=== PATIENT | female | born 1995 | race Caucasian/White ===

== ENCOUNTER 2020-09-09 22:08 | Emergency (ER) | payer BC ==
--- NOTE | 2020-09-09 22:26 | EDM.PDOC ---
ED HPI GENERAL MEDICAL PROBLEM - General Time Seen by Provider: 09/09/20 22:21 Source of Information: Reports: Patient, Family History Limitations: Reports: No Limitations - History of Present Illness INITIAL COMMENTS - FREE TEXT/NARRATIVE: Pt. states that her foot slipped and she landed on her backside and rolled down approx. 4-5 stairs at home. Pt. is currently 32 weeks gestation. She states that she did land on her abdomen at the bottom of the stairs. Primary complaint at this point is of pelvic/tailbone pain and L ankle pain. Denies striking her head. No cervical, thoracic, or lumbar discomfort. Pt. denies any vaginal bleeding. she is currently feeling to baby move. Denies any abdominal pain, chest pain, shortness of breath, or lightheadedness. No nausea, vomiting, or recent illness. No cough or chest congestion. Onset: Today Onset Date: 09/09/20 Location: Reports: Abdomen, Back - Related Data Allergies Allergy/AdvReac Type Severity Reaction Status Date / Time No Known Drug Allergies Allergy Other Verified 09/09/20 22:38 Home Meds: Home Meds Sertraline HCl 25 mg PO DAILY 09/09/20 [History] Past Medical History - Past Health History Medical/Surgical History: Denies Medical/Surgical History ED ROS GENERAL - Review of Systems Review Of Systems: See Below Constitutional: Reports: No Symptoms HEENT: Reports: No Symptoms Respiratory: Reports: No Symptoms Cardiovascular: Reports: No Symptoms Endocrine: Reports: No Symptoms GI/Abdominal: Reports: No Symptoms : Reports: No Symptoms Musculoskeletal: Reports: Leg Pain (L ankle pain), Other (pelvic pain) Skin: Reports: No Symptoms Neurological: Reports: No Symptoms Psychiatric: Reports: No Symptoms Hematologic/Lymphatic: Reports: No Symptoms Immunologic: Reports: No Symptoms ED EXAM, GENERAL - Physical Exam Exam: See Below Exam Limited By: No Limitations General Appearance: Alert, WD/WN, No Apparent Distress Eye Exam: Bilateral Eye: EOMI, Normal Fundi, Normal Inspection, PERRL Head: Atraumatic, Normocephalic Neck: Normal Inspection, Supple, Non-Tender, Full Range of Motion Respiratory/Chest: No Respiratory Distress, Lungs Clear, Normal Breath Sounds, No Accessory Muscle Use, Chest Non-Tender Cardiovascular: Normal Peripheral Pulses, Regular Rate, Rhythm, No Edema, No Murmur, No Rub Peripheral Pulses: 4+: Radial (R) GI/Abdominal: Soft, Non-Tender, Other (Gravid. Ecchymosis.) (Female) Exam: Deferred Rectal (Female) Exam: Deferred Back Exam: Normal Inspection, Full Range of Motion Extremities: Normal Inspection, Other (Pain on palpation of the lateral aspect of L ankle. No obvious deformity. No swelling to the area. No ecchymosis.) Neurological: Alert, Oriented, CN II-XII Intact, Normal Cognition, Normal Gait, Normal Reflexes, No Motor/Sensory Deficits Psychiatric: Normal Affect, Normal Mood Skin Exam: Warm, Dry, Intact, Normal Color, No Rash Lymphatic: No Adenopathy Departure - Departure Time of Disposition: 22:47 Disposition: Home, Self-Care 01 Clinical Impression: Obstetric trauma - Discharge Information - Problem List Review Problem List Initiated/Reviewed/Updated: Yes - Assessment/Plan Plan: Spoke briefly with the cook roast technical documentation specialist at [place] (Dr. Brothers). She feels the patient can be discharged, and then travel to [facility] OB triage for NST and ultrasound. She can travel by private vehicle, as she is not yaya, FHTs are stable, and there is no significant HCIKI to the abdomen. Discussed findings with patient and family.
[2020-09-09 22:48] VITALS: BP 146/80; PULSE 90
[2020-09-09 22:52] LABS: ANION GAP 14.6 mmol/L (5-15); CHLORIDE,CL 104 mmol/L (98-107); SODIUM,NA 139 mmol/L (136-145)
== END 2020-09-09 23:00 | disposition home or self-care (01) ==
LOC: VM.ED 22:08
DX: O71.9 Obstetric trauma, unspecified (principal); O99.891 Other specified diseases and conditions complicating pregnancy; M25.572 Pain in left ankle and joints of left foot; Z3A.32 32 weeks gestation of pregnancy; X50.1XXA Overexertion from prolonged static or awkward postures, initial encounter; Y92.009 Unspecified place in unspecified non-institutional (private) residence as the place of occurrence of the external cause
CPT/HCPCS: 36415; 80053; 84100; 85025; 85610; 85730; 99283; 99284